=== PATIENT | male | born 1950 | race Caucasian/White ===

== ENCOUNTER 2019-02-25 09:50 | Outpatient (CLI) | payer MEDICARE, BC, SELFPAY ==
[2019-02-25 13:13] LABS: Anion Gap 9.3 mmol/L (3-11); BUN 17 mg/dL (7-18); CO2 26.7 mmol/L (21.0-32.0); CREATININE 1.01 mg/dL (0.70-1.30); Calcium 8.9 mg/dL (8.5-10.1); Chloride 105 mmol/L (98-107); Glucose 129 mg/dL (70-100); Potassium 4.6 mmol/L (3.5-5.1); Sodium 141 mmol/L (136-145)
== END 2019-02-25 10:10 ==
PROVIDERS: Visit Provider Family Medicine
DX: I10 Essential (primary) hypertension (principal)
CPT/HCPCS: 36415; 80048

== ENCOUNTER 2019-03-04 09:35 | Outpatient (CLI) | payer MEDICARE, BC, SELFPAY | END 2019-03-04 09:55 | PROVIDERS: PCP Family Medicine; Visit Provider Family Medicine | DX: E11.9 Type 2 diabetes mellitus without complications (principal) | CPT/HCPCS: 36415; 83036 ==

== ENCOUNTER 2020-02-28 09:36 | Outpatient (CLI) | payer MEDICARE, BC, SELFPAY ==
[2020-02-28 12:57] LABS: Anion Gap 10.2 mmol/L (3-11); BUN 25 mg/dL (7-18); CO2 28.8 mmol/L (21.0-32.0); CREATININE 1.08 mg/dL (0.70-1.30); Calcium 9.6 mg/dL (8.5-10.1); Chloride 100 mmol/L (98-107); Glucose 125 mg/dL (74-106); Potassium 5.1 mmol/L (3.5-5.1); Sodium 139 mmol/L (136-145)
== END 2020-02-28 09:56 ==
PROVIDERS: PCP Family Medicine; Visit Provider Family Medicine
DX: I10 Essential (primary) hypertension (principal)
CPT/HCPCS: 36415; 80048

== ENCOUNTER 2021-03-06 09:14 | Outpatient (REF) | payer MEDICARE, BC, SELFPAY ==
[2021-03-06 16:12] LABS: ALT 24 U/L (16-63); AST 16 U/L (15-37); Albumin 4.1 g/dL (3.4-5.0); Alkaline Phosphatase 54 U/L (46-116); BUN 21 mg/dL (7-18); Bilirubin, Total 0.6 mg/dL (0.2-1.0); Calcium 9.5 mg/dL (8.5-10.1); Calculated LDL 182 mg/dL (<100); Chloride 103 mmol/L (98-107); Cholesterol 248 mg/dL (<200); Glucose 142 mg/dL (74-106); HDL Cholesterol 50 mg/dL (40-60); Potassium 4.9 mmol/L (3.5-5.1); Sodium 140 mmol/L (136-145); Total Protein 7.1 g/dL (6.4-8.2); Triglyceride 82 mg/dL (<150)
== END 2021-03-06 09:15 | disposition home or self-care (01) ==
LOC: LBN 09:14
PROVIDERS: PCP Nurse Practitioner Family; Visit Provider Nurse Practitioner Family
DX: I10 Essential (primary) hypertension (principal); E11.9 Type 2 diabetes mellitus without complications
CPT/HCPCS: 80053; 80061; 83036

== ENCOUNTER → 2023-08-19 18:50 | Outpatient (CLI) | payer MEDICARE, BC, SELFPAY ==
--- NOTE | 2023-08-19 10:18 | DI.RAD_ITS ---
Exam(s) XR LUMBAR SPINE COMPLETE EXAM: XR LUMBAR SPINE COMPLETE CLINICAL HISTORY: bilateral leg pain,m79.605,m79.604. TECHNIQUE: 2D digital imaging was performed. Five views. COMPARISON: No exams were available for comparison FINDINGS: BONES: No fracture or destructive lesion. Vertebral body heights are maintained. Endplate osteophyte s throughout. Facet degenerative changes noted throughout. DISKS: Moderate loss of disc height at L2-3. Moderate to severe loss of disc height at L4-5 and L5-S 1. ALIGNMENT: Lumbar spinal alignment is within normal limits. SOFT TISSUE: Aorta is calcified and normal in diameter. IMPRESSION: Degenerate disc changes and facet degenerative changes greatest at L4-5 and L5-S1. DATA REPOSITORY: RADIATION DOSE DELIVERED:
== END ==
PROVIDERS: PCP Nurse Practitioner Family; Visit Provider Nurse Practitioner Family
DX: M51.36 Other intervertebral disc degeneration, lumbar region
CPT/HCPCS: 36415; 80053; 85652; 87798; 72110; 85025; 86140; 86618

== ENCOUNTER 2023-08-19 19:03 | Outpatient (CLI) | payer MEDICARE, BC, SELFPAY ==
[2023-08-19 09:47] LABS: Abs Immature Grans 0.05 10^3/uL (0.0-0.06); Absolute Basophil Count 0.07 10^3/uL (0.0-0.2); Absolute Eosinophil Count 0.19 10^3/uL (0.0-0.7); Absolute Lymphocyte Count 1.81 10^3/uL (1.2-3.4); Absolute Monocyte Count 1.01 10^3/uL (0.1-0.8); Absolute Neutrophil Count 7.44 10^3/uL (1.2-6.7); Basophils % 0.7; Eosinophils % 1.8; HCT 42.6 % (40.0-50.0); HGB 14.2 g/dL (13.5-17.5); Immature Grans % 0.5; Lymphocytes % 17.1; MCH 30.8 pg (27.0-33.0); MCHC 33.3 % (32.0-36.0); MCV 92 fL (80-95); MPV 9.4 fL (8.0-11.0); Monocytes % 9.6; Neutrophils % 70.3; Platelet Count 391 10^3/uL (130-400); RBC 4.61 10^6/uL (4.36-5.78); RDW 11.1 % (11.8-14.1); RDW-SD 37.8 fL; WBC 10.57 10^3/uL (4.4-10.8)
[2023-08-19 09:58] LABS: ESR 23 mm/hr (0-20)
[2023-08-19 10:21] LABS: ALT 18 U/L (16-63); AST 11 U/L (15-37); Albumin 3.2 g/dL (3.4-5.0); Alkaline Phosphatase 77 U/L (46-116); Anion Gap 6.8 mmol/L (3-11); BUN 16 mg/dL (7-18); Bilirubin, Total 0.7 mg/dL (0.2-1.0); C-Reactive Protein 7.45 mg/dL (0.0-0.3); CO2 30.2 mmol/L (21.0-32.0); CREATININE 1.1 mg/dL (0.70-1.30); Calcium 9.6 mg/dL (8.5-10.1); Chloride 99 mmol/L (98-107); Estimated GFR 71.32 (mL/min/1.73m2); Glucose 188 mg/dL (74-106); Potassium 4.2 mmol/L (3.5-5.1); Sodium 136 mmol/L (136-145); Total Protein 8.1 g/dL (6.4-8.2)
[2023-08-20 09:37] LABS: Lyme Ab w Rflx to Lyme Confirm Negative (Negative)
[2023-08-22 00:24] LABS: Anaplasma phagocytophilum Negative (Negative); B. miyamotoi PCR Negative (Negative); Babesia divergens/MO-1 Negative (Negative); Babesia duncani Negative (Negative); Babesia microti Negative (Negative); Ehrlichia chaffeensis Negative (Negative); Ehrlichia ewingii/canis Negative (Negative); Ehrlichia muris eauclairensis Negative (Negative)
== END 2023-08-19 19:04 | disposition home or self-care (01) ==
LOC: LBO 19:04
PROVIDERS: PCP Nurse Practitioner Family; Visit Provider Nurse Practitioner Family
DX: M79.604 Pain in right leg (principal); M79.605 Pain in left leg
CPT/HCPCS: 36415; 80053; 85652; 87798; 72110; 85025; 86140; 86618

== ENCOUNTER → 2023-08-28 08:16 | Outpatient (CLI) | payer MEDICARE, BC, SELFPAY ==
--- NOTE | 2023-08-28 07:15 | DI.RAD_ITS ---
Exam(s) XR KNEE LT 4V AP,LAT,GRIS,PAT EXAM: XR KNEE LT 4V AP,LAT,GRIS,PAT CLINICAL HISTORY: left knee pain,m25.562. TECHNIQUE: 2D digital imaging was performed of the left knee. Four images were obtained. Merchant, AP, lateral and PA tunnel views were obtained. COMPARISON: None. FINDINGS: BONES: No acute fracture is present. No bony destructive lesion is seen. There is an enthesophyte at the superior patella. JOINTS: The knee is normally aligned. There is mild narrowing of the medial joint compartment of the femoral tibial joint. Osteophytes is seen at the posterior patella. No loose body. SOFT TISSUE: Vascular calcifications are present. IMPRESSION: Mild degenerative changes of the left knee. DATA REPOSITORY: RADIATION DOSE DELIVERED:
--- NOTE | 2023-08-28 07:15 | DI.US_ITS ---
Exam(s) US SOFT TISS EXTREMITY/GROIN EXAM: US SOFT TISS EXTREMITY/GROIN CLINICAL HISTORY: left knee pain, popliteal tenderness, ? bakers cyst,M25.562. TECHNIQUE: Ultrasound was performed using standard protocol. COMPARISON: No exams were available for comparison FINDINGS: Sonographic assessment utilizing grayscale and color Doppler imaging was performed and targeted to th e area of clinical concern. There is a fluid collection measuring 10 x 1.3 x 7.5 cm anterior to the patella which may represent a prepatellar bursitis. There is no fluid noted in the popliteal fossa. The popliteal artery and vei n are unremarkable. IMPRESSION: 1. No evidence of a popliteal cyst. 2. Fluid anterior to the patella which may represent prepatellar bursitis. If there is concern for i nternal derangement, an MRI may be obtained for further evaluation. DATA REPOSITORY:
== END ==
PROVIDERS: PCP Nurse Practitioner Family; Visit Provider Nurse Practitioner Family
DX: M17.12 Unilateral primary osteoarthritis, left knee (principal); R22.42 Localized swelling, mass and lump, left lower limb
CPT/HCPCS: 76882; 73564

== ENCOUNTER → 2023-09-30 01:43 | Outpatient (CLI) | payer MEDICARE, BC, SELFPAY ==
--- NOTE | 2023-09-30 | DI.MRI_ITS ---
Exam(s) MR LOWER JOINT LT WO EXAM: MR LOWER JOINT LT WO CLINICAL HISTORY: LT KNEE PAIN,INTERNAL DERANGEMENT,M23.92. TECHNIQUE: Multiplanar multisequence MRI was performed. COMPARISON: CR XR KNEE LT 4V AP,LAT,GRIS,PAT from 08/28/2023 FINDINGS: BONES: There is no fracture or contusion pattern. Enthesophyte at superior patella. JOINTS: A moderate-sized joint effusion is present. Articular cartilage: Patellofemoral joint: Articular cartilage is unremarkable. Medial femoral tibial joint: Articular cartilage is unremarkable. Lateral femoral tibial joint: Articular cartilage is unremarkable. TENDONS: Extensor mechanism: Quadriceps tendon unremarkable. Small area of intermediate signal in the distal patellar tendon disc before the tubercle. The findings could represent tendinosis or mild partial te ar. Medial retinaculum: Unremarkable. Lateral retinaculum: Unremarkable. Popliteus: Some thickening and intermediate signal proximally, partial tear versus tendinosis. MUSCLES: Unremarkable. MENISCI: The medial meniscus shows an in inferiorly surfacing horizontal tear of the posterior horn. The lateral meniscus shows mild degenerative signal changes. SOFT TISSUES: Subcutaneous edema, greater laterally. LIGAMENTS: Anterior Cruciate: Somewhat thickened which edema within the fibers. No evidence of focal tear. Fin dings could indicate sprain versus mucoid degeneration. Posterior Cruciate: Unremarkable. Medial Collateral:Unremarkable. Lateral Collateral: Unremarkable. IMPRESSION: Inferior surfacing tear of the posterior horn of the medial meniscus. Joint effusion. Question of ACL sprain versus mucoid degeneration. Arm tendinosis versus partial tear of the proximal popliteus tendon. Mild edema in the distal patell ar tendon. DATA REPOSITORY:
== END ==
PROVIDERS: PCP Nurse Practitioner Family; Visit Provider Physician Assistant
DX: M23.222 Derangement of posterior horn of medial meniscus due to old tear or injury, left knee (principal)
CPT/HCPCS: 73721

== ENCOUNTER 2024-04-08 00:39 | Outpatient (CLI) | payer MEDICARE, BC, SELFPAY ==
[2024-04-08 12:18] LABS: HCT 43.8 % (40.0-50.0); HGB 14.6 g/dL (13.5-17.5); MCH 31.3 pg (27.0-33.0); MCHC 33.3 % (32.0-36.0); MCV 94 fL (80-95); MPV 9.4 fL (8.0-11.0); Platelet Count 288 10^3/uL (130-400); RBC 4.67 10^6/uL (4.36-5.78); RDW 13.8 % (11.8-14.1); RDW-SD 47.4 fL; WBC 8.03 10^3/uL (4.4-10.8)
[2024-04-08 12:48] LABS: ALT 19 U/L (16-63); AST 15 U/L (15-37); Albumin 3.8 g/dL (3.4-5.0); Alkaline Phosphatase 64 U/L (46-116); Anion Gap 4.1 mmol/L (3-11); BUN 14 mg/dL (7-18); CO2 30.9 mmol/L (21.0-32.0); CREATININE 0.9 mg/dL (0.70-1.30); Calcium 9.4 mg/dL (8.5-10.1); Calculated LDL 170 mg/dL (<100); Chloride 102 mmol/L (98-107); Cholesterol 258 mg/dL (<200); Estimated GFR 90.18 (mL/min/1.73m2); Glucose 139 mg/dL (74-106); HDL Cholesterol 67 mg/dL (40-60); Potassium 4.5 mmol/L (3.5-5.1); Sodium 137 mmol/L (136-145); TSH (W/Ref FT4) 1.82 uIU/mL (0.36-3.74); Total Protein 7.5 g/dL (6.4-8.2); Triglyceride 105 mg/dL (<150)
== END 2024-04-08 00:40 | disposition home or self-care (01) ==
LOC: LBO 00:39
PROVIDERS: PCP Nurse Practitioner Family; Referring Provider Nurse Practitioner Family; Visit Provider Nurse Practitioner Family
DX: E11.9 Type 2 diabetes mellitus without complications (principal); I10 Essential (primary) hypertension; Z00.00 Encounter for general adult medical examination without abnormal findings; R53.83 Other fatigue; E78.2 Mixed hyperlipidemia
CPT/HCPCS: 36415; 80053; 80061; 85027; 82043; 82570; 84443

== ENCOUNTER 2025-03-20 03:26 | Outpatient (CLI) | payer MEDICARE, BC, SELFPAY ==
[2025-03-20 09:03] LABS: Anion Gap 6.0 mmol/L (3-11); BUN 19 mg/dL (7-18); CO2 29.0 mmol/L (21.0-32.0); Calcium 9.1 mg/dL (8.5-10.1); Chloride 102 mmol/L (98-107); Estimated GFR 70.44 (mL/min/1.73m2); Glucose 137 mg/dL (74-106); Potassium 4.6 mmol/L (3.5-5.1); Sodium 137 mmol/L (136-145)
[2025-03-20 09:48] LABS: COMMENT (LAB VIEW ONLY) 32.16 mg/dL; Microalb ug/mg Crea 27.7 ug/mg Cr
[2025-03-23 16:22] LABS: Apolipoprotein B, Serum 133 mg/dL; Beta VLDL Cholesterol Not Detected mg/dL (<15); Beta VLDL Triglycerides Not Detected mg/dL (<15); Cholesterol, Total, CDC 234 mg/dL; Chylomicron Cholesterol Not Detected; Chylomicron Triglycerides Not Detected; HDL Cholesterol, CDC 52 mg/dL (>=40); LpX Not detected; Triglycerides, CDC 74 mg/dL; VLDL Triglycerides 25 mg/dL (<120)
[2025-03-28 10:15] LABS: Anti GAD65 Abs 0.00 nmol/L (<= 0.02)
== END 2025-03-20 03:27 | disposition home or self-care (01) ==
LOC: LBO 03:26
PROVIDERS: PCP Nurse Practitioner Family; Visit Provider Nurse Practitioner Family
DX: E11.9 Type 2 diabetes mellitus without complications (principal); E78.2 Mixed hyperlipidemia
CPT/HCPCS: 36415; 80048; 80061; 86337; 86341; 82043; 82172; 82570; 82664; 84681

== ENCOUNTER 2025-04-05 09:24 | Outpatient (CLI) | payer MEDICARE, BC, SELFPAY ==
--- NOTE | 2025-04-05 09:15 | RT.EKG_ITS ---
APPROVED REPORT Exam: Resting ECG Reason for Exam: chest discomfort Patient Location: O HR:74 bpm ECG Measurements Heart Rate 74 AXIS WY 180 P 57 QRSd 111 QRS 19 QT 409 T -59 QTc 454 Conclusion Sinus rhythm...normal P axis, V-rate 50- 99 Probable left ventricular hypertrophy...multiple LVH criteria Inferior infarct, age indeterminate...Q>35mS, T neg, II III aVF
== END 2025-04-05 09:25 | disposition home or self-care (01) ==
LOC: DI.CM 09:24
PROVIDERS: PCP Nurse Practitioner Family; Visit Provider Nurse Practitioner Family
DX: R07.89 Other chest pain (principal)
CPT/HCPCS: 93010

== ENCOUNTER 2025-04-05 09:57 | Inpatient (IN) | payer MEDICARE, BC, SELFPAY ==
[2025-04-05] VITALS (48 sets, daily range): BP systolic 113–161; BP diastolic 60–99; PULSE 57–84; RESP 8–24; TEMP 36.4–37.5; O2SAT 92–98
--- NOTE | 2025-04-05 09:45 | RT.EKG_ITS ---
APPROVED REPORT Exam: Resting ECG Reason for Exam: chest pain Patient Location: E HR:71 bpm ECG Measurements Heart Rate 71 AXIS SD 175 P 50 QRSd 118 QRS 23 QT 395 T -47 QTc 430 Conclusion Sinus rhythm...normal P axis, V-rate 60- 99 Probable left atrial enlargement...P >50mS, <-0.10mV V1 Left ventricular hypertrophy...multiple LVH criteria Inferior infarct, age indeterminate...Q>35mS, T neg, II III aVF No STEMI
[2025-04-05 10:42] LABS: Abs Immature Grans 0.02 10^3/uL (0.0-0.06); HCT 41.1 % (40.0-50.0); HGB 13.3 g/dL (13.5-17.5); Immature Grans % 0.3 %; MCH 28.8 pg (27.0-33.0); MCHC 32.4 % (32.0-36.0); MCV 89 fL (80-95); MPV 10.3 fL (8.0-11.0); Platelet Count 265 10^3/uL (130-400); RBC 4.62 10^6/uL (4.36-5.78); RDW 14.4 % (11.8-14.1); RDW-SD 47.1 fL; WBC 6.82 10^3/uL (4.4-10.8)
[2025-04-05] MEDS: Aspirin 81 MG CHEW 324 MG CH (10:47)
[2025-04-05] MEDS: Famotidine 20 MG TAB PO (10:47)
--- NOTE | 2025-04-05 11:00 | RT.EKG_ITS ---
APPROVED REPORT Exam: Resting ECG Reason for Exam: R sided Patient Location: E HR:64 bpm ECG Measurements Heart Rate 64 AXIS MO 186 P 46 QRSd 114 QRS 15 QT 431 T -44 QTc 442 Conclusion Sinus rhythm...normal P axis, V-rate 60- 99 Atrial premature complex...SV complex w/ short R-R interval Probable left atrial enlargement...P >50mS, <-0.10mV V1 Left ventricular hypertrophy...multiple LVH criteria Inferior infarct, age indeterminate...Q>35mS, T neg, II III aVF ST elevation, consider anterior injury...ST >0.15mV, V1-V5 No STEMI Hyper acute T-waves
[2025-04-05 11:06] LABS: ALT 19 U/L (16-63); AST 22 U/L (15-37); Albumin 3.7 g/dL (3.4-5.0); Alkaline Phosphatase 64 U/L (46-116); Anion Gap 6.9 mmol/L (3-11); BUN 20 mg/dL (7-18); Bilirubin, Total 0.5 mg/dL (0.2-1.0); CO2 28.1 mmol/L (21.0-32.0); Calcium 9.0 mg/dL (8.5-10.1); Chloride 104 mmol/L (98-107); Estimated GFR 78.98 (mL/min/1.73m2); Glucose 129 mg/dL (74-106); Lipase 32 U/L (<78); NT-proBNP 1383 pg/mL (<300); Potassium 4.5 mmol/L (3.5-5.1); Sodium 139 mmol/L (136-145); Total Protein 7.1 g/dL (6.4-8.2)
[2025-04-05 11:09] LABS: Troponin I 843 ng/L (<or=76)
[2025-04-05 11:10] LABS: D-Dimer 466 ng/mlFEU (<500)
--- NOTE | 2025-04-05 11:15 | RT.EKG_ITS ---
APPROVED REPORT Exam: Resting ECG Reason for Exam: R sided Patient Location: E HR:60 bpm ECG Measurements Heart Rate 60 AXIS NM 178 P 44 QRSd 119 QRS 11 QT 451 T -33 QTc 452 Conclusion Sinus rhythm...normal P axis, V-rate 60- 99 Probable left atrial enlargement...P >50mS, <-0.10mV V1 Nonspecific intraventricular conduction delay...QRSd >115mS, not LBBB/RBBB Probable inferolateral infarct, age indeterm...Q >35mS, inf-lat leads Anterolateral infarct, age indeterminate...Q >35mS, flat/neg T, V3-V6,I,aVL No STEMI
--- NOTE | 2025-04-05 11:55 | DI.RAD_ITS ---
Exam(s) XR PORTABLE CHEST AP EXAM: XR PORTABLE CHEST AP CLINICAL HISTORY: xr chest TECHNIQUE: 2D digital imaging was performed. COMPARISON: CR CHEST 2 VIEWS PA,LAT from 12/08/2016 FINDINGS: LUNGS: Clear. No pleural abnormality seen. HEART: Normal size. AORTA: Normal diameter. BONES: Unremarkable for age. Soft tissues: Unremarkable. IMPRESSION: No acute findings. DATA REPOSITORY: RADIATION DOSE DELIVERED:
[2025-04-05 12:03] LABS: Troponin I 897 ng/L (<or=76)
[2025-04-05] MEDS: Heparin in 0.45% NaCl 25,000 UNIT/250 ML BAG 9.5 UNIT IVINF (12:21)
--- NOTE | 2025-04-05 12:24 | ED.GENADUL_ITS ---
Discharge Plan Disposition Patient Disposition: Admit to [facility] Condition: Stable Discharge Details Clinical Impression: Non-ST elevated myocardial infarction Admit Date/Time: 04/05/25 13:15 Admit Provider: Souleymane Garcia Attending Provider: Souleymane Garcia Primary Care Provider: Cristian Loera ED Provider: Hero Jc HPI General Date/Time Provider Initiated Documentation: 04/05/25 10:12 . 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 Quality described as chest tightness, dizziness, diaphoresis and shortness of breath, no radiation to syncope, endorses nausea when he stands to toilet here. Severity is described as moderate at onset, currently 0-1/10. Palliating factors include nothing specific attempted. Provoking factors include any physical activity. Events leading up to the incident/Associated Symptoms: Patient does not go to the doctor often. Patient not anticoagulated. Related Data Home Medications ?Medication ?Instructions ?Recorded ?Confirmed ibuprofen 200 mg tablet (Motrin IB) 400 mg PO BID PRN 01/17/13 04/05/25 Held on 04/05/25. Instructions: Pt Stopped/Never Started multivitamin (Once Daily tablet) 1 tab PO DAILY #90 ta bs 02/18/18 04/05/25 insulin glargine 100 unit/mL (3 10 unit (0.1 mL) subcu t BID #15 mL 03/08/25 04/05/25 mL) subcutaneous pen (Basaglar KwikPen U-100 Insulin) blood sugar diagnostic (OneTouch #200 ea 03/09/25 08 Verio test strips) blood-glucose meter (OneTouch #1 ea 03/09/25 04/05/25 Verio Flex Start kit) lancets 30 gauge (OneTouch Delica #200 ea 03/09/25 Plus Lancet) pen needle, diabetic 31 gauge x #100 ea 03/09/2504/05 (Comfort EZ Pen [place]) Previous Rx's ?Medication ?Instructions ?Recorded multivitamin (Once Daily tablet) 1 tab PO DAILY #90 ta bs 02/18/18 insulin glargine 100 unit/mL (3 10 unit (0.1 mL) subcu t BID #15 mL 03/08/25 mL) subcutaneous pen (Basaglar KwikPen U-100 Insulin) blood sugar diagnostic (OneTouch #200 ea 03/09/25 Verio test strips) blood-glucose meter (OneTouch #1 ea 03/09/25 Verio Flex Start kit) lancets 30 gauge (OneTouch Delica #200 ea 03/09/25 Plus Lancet) pen needle, diabetic 31 gauge x #100 ea 03/09/25 3/16 (Comfort EZ Pen [place]) Allergies Allergy/AdvReac Type Severity Reaction Status Date / Time Sulfa (Sulfonamide Allergy Unknown unknown Verified 04/05/25 09:15 Antibiotics) aspirin AdvReac Intermediate ABD UPSET Verified 04/05/25 09:15 Maabwic-BNY-NjS Reductase AdvReac Unknown unknown Verified 04/05/25 09:15 Inhibitor (Uunrrel-Wlp-Jie Reductase Inhibitor) General Stated Complaint: SOB DIXON: 3 Review of Systems All systems reviewed & are unremarkable except as noted in HPI and below Exam Narrative Exam Narrative: GENERAL APPEARANCE: Well-nourished, non-toxic, awake and alert, atraumatic, no acute distress. SKIN: Warm, pink, dry, intact, without rashes/lesions/ulcerations. HEAD: Normocephalic, atraumatic, normal hair distribution for gender/age. EYES: Normal conjunctiva, no exudates on lids/lashes. ENT: Nares patent, no circumoral cyanosis, no facial swelling NECK: Supple, trachea midline, painless cervical ROM. LUNGS/CHEST: Lungs CTA bilaterally- no rhonchi/rales/wheezes diffusely, non- labored respirations, normal A/P diameter, symmetrical expansion, no chest wall deformity HEART (CV/PV): Regular rate and rhythm with systolic 2/6 murmur at LSB, no peripheral edema, no JVD. ABDOMEN: Soft, non-distended, no guarding, no tenderness. MSK: Normal ROM, no swelling/deformity to bilateral UEs or LEs, moving all extremities without weakness, no cyanosis, spine midline without tenderness, normal curvature. NEURO: Mental Status AAOx4 - alert to person, place, time, events No facial droop, no forehead involvement. Motor: No focal weakness - strength 5/5 in bilateral UEs and LEs, proximal and distal, symmetric. Sensory: sensation intact to light touch globally. Gait normal: patient ambulated without ataxia into ED room. PSYCH: euthymic, cooperative, pleasant, appropriate speech Course Vital Signs Vital signs: Vital Signs Temperature 36.7 C 04/05/25 09:59 Pulse 75 04/05/25 09:59 Respiratory Rate 18 04/05/25 09:59 Blood Pressure 133/75 04/05/25 09:59 Pulse Oximetry 97 04/05/25 09:59 Temperature 37.5 C 04/05/25 10:22 Temperature Source Oral 04/05/25 10:22 Pulse 71 04/05/25 10:31 Pulse 71 04/05/25 10:31 Respiratory Rate 14 04/05/25 10:31 Respiratory Effort Normal, Non-Labored 04/05/25 10:19 Respiratory Depth Normal 04/05/25 10:19 Respiratory Pattern Normal 04/05/25 10:19 Blood Pressure 128/76 04/05/25 10:30 Blood Pressure Mean 92 04/05/25 10:30 Blood Pressure Position Sitting 04/05/25 10:22 Pulse Oximetry 97 04/05/25 10:31 Oxygen Delivery Method Room Air 04/05/25 10:22 Oxygen Flow Rate 0 04/05/25 09:59 Pain Level 0 04/05/25 09:59 Lab/Test Results Lab/Test Results: Laboratory Tests Range/Units 04/05/25 04/05/25 10:35 11:30 WBC (4.4-10.8) 10^3/uL 6.82 RBC (4.36-5.78) 10^6/uL 4.62 Hgb (13.5-17.5) g/dL 13.3 L Hct (40.0-50.0) % 41.1 MCV (80-95) fL 89 MCH (27.0-33.0) pg 28.8 MCHC (32.0-36.0) % 32.4 RDW (11.8-14.1) % 14.4 H Plt Count (130-400) 10^3/uL 265 MPV (8.0-11.0) fL 10.3 Immature Gran % % 0.3 Neutrophils % % 68.9 Lymphocytes % % 18.3 Monocytes % % 8.7 Eosinophils % % 2.8 Basophils % % 1.0 Nucleated RBC % (0.0-0.3) % 0.0 Absolute Neutrophils (1.2-6.7) 10^3/uL 4.70 Absolute Lymphocytes (1.2-3.4) 10^3/uL 1.25 Absolute Monocytes (0.1-0.8) 10^3/uL 0.59 Absolute Eosinophils (0.0-0.7) 10^3/uL 0.19 Absolute Basophils (0.0-0.2) 10^3/uL 0.07 D-Dimer (<500) ng/mlFEU 466 Sodium (136-145) mmol/L 139 Potassium (3.5-5.1) mmol/L 4.5 Chloride (98-107) mmol/L 104 Carbon Dioxide (21.0-32.0) mmol/L 28.1 Anion Gap (3-11) mmol/L 6.9 BUN (7-18) mg/dL 20 H Creatinine (0.70-1.30) mg/dL 1.0 Est GFR (CKD-EPI 2020) (mL/min/1.73m2) 78.98 Glucose (74-106) mg/dL 129 H Calcium (8.5-10.1) mg/dL 9.0 Total Bilirubin (0.2-1.0) mg/dL 0.5 AST (15-37) U/L 22 ALT (16-63) U/L 19 Alkaline Phosphatase (46-116) U/L 64 Troponin I (<or=76) ng/L 843 H* 897 H* NT-Pro-B Natriuret Pep (<300) pg/mL 1383 H Total Protein (6.4-8.2) g/dL 7.1 Albumin (3.4-5.0) g/dL 3.7 Lipase (<78) U/L 32 Medical Decision Making This dictation utilizes [id number] dictation software and may contain unedited grammatical errors. 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 Quality described as chest tightness, dizziness, diaphoresis and shortness of breath, no radiation to syncope, endorses nausea when he stands to toilet here. Severity is described as moderate at onset, currently 0-1/10. Palliating factors include nothing specific attempted. Provoking factors include any physical activity. Events leading up to the incident/Associated Symptoms: Patient does not go to the doctor often. Patients' medical history: T2DM, hyperlipidemia not on statins, hypertension. Family and social history: Denies tobacco use, no alcohol use, performs manual labor via chores, eats normal diet. Pertinent exam findings / vital signs include systolic murmur best heard at LSB, with stable vitals, benign abdomen, no carotid bruits, neuro intact. Differential / pathologies of concern include ACS, CHF, costochondritis, PE, pneumonia. Diagnostic studies of: - CBC, CMP, D-dimer, serial troponins, BNP, lipase, EKGs, XR chest. 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 Barsher is accepting physician- patient is on heparin, got 324mg ASA, per cardiology hold plavix for now. Admit to [facility] with transfer tomorrow. Hospitalist Dr. Garcia accepts at 1245. -324mg ASA, Heparin drip, hold plavix- no active CP. 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 He presents to his primary care who refers to the ER, we have found his troponin to be at 847, repeat 893 likely NSTEMI but he does have T wave inversions and peaked T waves with some diffuse ST depressions and questionable ST elevation in aVL, I spoke with [facility] [place] cardiology they will accept the patient for tomorrow pending any negative changes for reevaluation and possible more expedient transfer, patient is suspicious for multivessel disease. He is having no chest pain here in the emergency department and received aspirin and was placed on heparin, admitted to hospitalist service pending transfer to [facility] [place] accepted by Dr. Brasher. Disposition of Non-ST Elevation Myocardial Infarction. Patient verbalized understanding of the plan and return to ED criteria and engaged in shared decision making. Medical Records Medical records reviewed: Yes I reviewed the patient's medical records. Imaging Data Radiologic Study: Attestation: I personally reviewed and interpreted this imaging study as follows: Imaging: X-Ray Radiologist's impression: EXAM: XR PORTABLE CHEST AP CLINICAL HISTORY: xr chest TECHNIQUE: 2D digital imaging was performed. COMPARISON: CR CHEST 2 VIEWS PA,LAT from 12/08/2016 FINDINGS: LUNGS: Clear. No pleural abnormality seen. HEART: Normal size. AORTA: Normal diameter. BONES: Unremarkable for age. Soft tissues: Unremarkable. IMPRESSION: No acute findings. Lab Data Lab results reviewed: Yes I reviewed the patient's lab results. Labs: Laboratory Tests Range/Units 04/05/25 04/05/25 10:35 11:30 WBC (4.4-10.8) 10^3/uL 6.82 RBC (4.36-5.78) 10^6/uL 4.62 Hgb (13.5-17.5) g/dL 13.3 L Hct (40.0-50.0) % 41.1 MCV (80-95) fL 89 MCH (27.0-33.0) pg 28.8 MCHC (32.0-36.0) % 32.4 RDW (11.8-14.1) % 14.4 H Plt Count (130-400) 10^3/uL 265 MPV (8.0-11.0) fL 10.3 Immature Gran % % 0.3 Neutrophils % % 68.9 Lymphocytes % % 18.3 Monocytes % % 8.7 Eosinophils % % 2.8 Basophils % % 1.0 Nucleated RBC % (0.0-0.3) % 0.0 Absolute Neutrophils (1.2-6.7) 10^3/uL 4.70 Absolute Lymphocytes (1.2-3.4) 10^3/uL 1.25 Absolute Monocytes (0.1-0.8) 10^3/uL 0.59 Absolute Eosinophils (0.0-0.7) 10^3/uL 0.19 Absolute Basophils (0.0-0.2) 10^3/uL 0.07 D-Dimer (<500) ng/mlFEU 466 Sodium (136-145) mmol/L 139 Potassium (3.5-5.1) mmol/L 4.5 Chloride (98-107) mmol/L 104 Carbon Dioxide (21.0-32.0) mmol/L 28.1 Anion Gap (3-11) mmol/L 6.9 BUN (7-18) mg/dL 20 H Creatinine (0.70-1.30) mg/dL 1.0 Est GFR (CKD-EPI 2020) (mL/min/1.73m2) 78.98 Glucose (74-106) mg/dL 129 H Calcium (8.5-10.1) mg/dL 9.0 Total Bilirubin (0.2-1.0) mg/dL 0.5 AST (15-37) U/L 22 ALT (16-63) U/L 19 Alkaline Phosphatase (46-116) U/L 64 Troponin I (<or=76) ng/L 843 H* 897 H* NT-Pro-B Natriuret Pep (<300) pg/mL 1383 H Total Protein (6.4-8.2) g/dL 7.1 Albumin (3.4-5.0) g/dL 3.7 Lipase (<78) U/L 32 Quality:SDOH Health Related Social Needs: Health related social needs lonely/isolated Health related social needs details pt states he only has it brother PFSH All Active Problems (Updated 04/05/25 @ 15:12 by VINCENT Sanders) Non-ST elevated myocardial infarction (Acute) NSTEMI (non-ST elevated myocardial infarction) (Acute) Diabetes mellitus type 2 in nonobese (Acute) Skin lesion (Acute) Left knee pain (Acute) Bilateral leg pain (Acute) Actinic keratoses (Acute) Essential hypertension (Acute) Family hx of prostate cancer (Acute) Hyperlipidemia (Acute) Type 2 diabetes mellitus without complication, without long-term current use of insulin (Acute 02/13/17) Undiagnosed cardiac murmurs (Acute) echo-mild focal aortic valve thickening Medical History Actinic keratosis History of alcoholism 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 Father Prostate cancer Brother Essential hypertension Hyperlipidemia Maternal Grandfather Heart disease Paternal Grandfather Stomach cancer Maternal Grandmother No problems noted. Paternal Grandmother No problems noted. Social History Smoking/Tobacco Use Status: Never Second Hand Exposure: Yes Smoking risk assessment performed?: Yes Alcohol Intake: former Drug use: Never Substance use type: does not use Caregiver/Support person: No Household members: none Housing: house Communication Needs: None Do you need help understanding health information?: Never Pets and animals: No Sexually active: No Do you think of yourself as: straight/heterosexual Current gender identity: male What is your relationship status?: How often do you talk on the phone with friends or family?: three or more times per week How often do you get together with friends or relatives?: twice per week How often do you attend scientology or mosque services?: decline to answer Do you belong to any clubs or organized social groups?: no Panel score (0-1 are the most socially isolated patients): 1 What type of physical activity do you participate in: walking Duration: 45-60 minutes/day Frequency: 3-4 times per week Special jabari needs: No Seatbelt use: always Drive intox or ride w/intox flatbed company driver: No Do you feel safe at home: Yes Do you feel safe in your relationship?: Yes
[2025-04-05 12:41] LABS: PTT Activated 25.3 sec (20.6-30.2)
--- NOTE | 2025-04-05 13:02 | W.PM.HP.N ---
Date of service: 04/05/25 Time of Service: 13:02 Assessment and Plan Assessment and plan (1) NSTEMI (non-ST elevated myocardial infarction): Status: Acute Assessment and plan: EKG negative for STEMI, repeat if ACS symptoms , D- dimer and C XR negative- no increase in chest pain intensity with cough, troponin [id number] pointing to NSTEMI Heparin drip ASA daily 6- hour troponin ordered Trend troponin PRN nitroglycerin chest pain [facility] in AM NPO at mignight (2) Diabetes mellitus type 2 in nonobese: Status: Acute Assessment and plan: Gluc AC & HS with home dose of insulin bolus and SSI coverage labs in AM (3) Essential hypertension: Status: Acute Assessment and plan: Not on medicine at home (4) Hyperlipidemia: Status: Acute Assessment and plan: Lipitor allergy - LE weakness Will attemp crestor Lipid panel Discussed with Dr. Garcia History of Present Illness History of Present Illness Chief Complaint: Chest pain Narrative: This 74 year-old male with a past medical history of hypelipeidemia,DM II, HNT, remote ETOH dependence presented to ED today by POV/ambulating after visiting urgent care for evaluation of daily left sided chest pain on exertional activity with shortness of breath and dizziness for the past 2 months resolving at rest within 2-3 minutes. Denied diaphoresis and shortness of breath, radiation, syncope, nausea vomiting. Reported feeling pre-syncopal but subsided with rest, family history of most likely sudden from father and grand father. EKG negative for STEMI, troponin positive at 843 and 897, BUN/Cr ratio 20, [id number] blood work is otherwise without actianble items. ASA 324 mg given in ED and heparin drip initiated. [facility] cardiology consult resulting with Dr. Brasher accepting the patient and admission to [facility] pending bed avalaiblity in the morning. No recommendation for plavix emitted. Full code status confirmed Review of Systems All systems reviewed & are unremarkable except as noted in HPI and below PFSH All Active Problems (Updated 04/05/25 @ 15:12 by VINCENT Sanders) Non-ST elevated myocardial infarction (Acute) NSTEMI (non-ST elevated myocardial infarction) (Acute) Diabetes mellitus type 2 in nonobese (Acute) Skin lesion (Acute) Left knee pain (Acute) Bilateral leg pain (Acute) Actinic keratoses (Acute) Essential hypertension (Acute) Family hx of prostate cancer (Acute) Hyperlipidemia (Acute) Type 2 diabetes mellitus without complication, without long-term current use of insulin (Acute 02/13/17) Undiagnosed cardiac murmurs (Acute) echo-mild focal aortic valve thickening Medical History Actinic keratosis History of alcoholism 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 Father Prostate cancer Brother Essential hypertension Hyperlipidemia Maternal Grandfather Heart disease Paternal Grandfather Stomach cancer Maternal Grandmother No problems noted. Paternal Grandmother No problems noted. Social History Smoking/Tobacco Use Status: Never Second Hand Exposure: Yes Smoking risk assessment performed?: Yes Alcohol Intake: former Drug use: Never Substance use type: does not use Caregiver/Support person: No Household members: none Housing: house Communication Needs: None Do you need help understanding health information?: Never Pets and animals: No Sexually active: No Do you think of yourself as: straight/heterosexual Current gender identity: male What is your relationship status?: How often do you talk on the phone with friends or family?: three or more times per week How often do you get together with friends or relatives?: twice per week How often do you attend oriental orthodox or mu-ism services?: decline to answer Do you belong to any clubs or organized social groups?: no Panel score (0-1 are the most socially isolated patients): 1 What type of physical activity do you participate in: walking Duration: 45-60 minutes/day Frequency: 3-4 times per week Special jabari needs: No Seatbelt use: always Drive intox or ride w/intox tow motor driver: No Do you feel safe at home: Yes Do you feel safe in your relationship?: Yes Meds Allergies and Home Medications Allergies Allergy/AdvReac Type Severity Reaction Status Date / Time Sulfa (Sulfonamide Allergy Unknown unknown Verified 04/05/25 09:15 Antibiotics) aspirin AdvReac Intermediate ABD UPSET Verified 04/05/25 09:15 Nuijzcg-TTC-AyT Reductase AdvReac Unknown unknown Verified 04/05/25 09:15 Inhibitor (Lsvpezu-Jhd-Rtg Reductase Inhibitor) Home Medications ?Medication ?Instructions ?Recorded ?Confirmed ?Type ibuprofen 200 mg tablet (Motrin IB) 400 mg PO BID PRN 01/17/13 04/05/25 History Held on 04/05/25. Instructions: Pt Stopped/Never Started multivitamin (Once Daily tablet) 1 tab PO DAILY #90 tabs 02/18/18 04/05/25 Rx insulin glargine 100 unit/mL (3 10 unit (0.1 mL) subcut BID #15 mL 03/08/25 04/05/25 Rx mL) subcutaneous pen ([employer] Solutionsaglar KwikPen U-100 Insulin) blood sugar diagnostic (Birdhouse for AutismTouch #200 ea 03/09/25 04/05/25 Rx Verio test strips) blood-glucose meter (OneTouch #1 ea 03/09/25 04/05/25 Rx Verio Flex Start kit) lancets 30 gauge (OneTouch Delica #200 ea 03/09/25 04/05/25 Rx Plus Lancet) pen needle, diabetic 31 gauge x #100 ea 03/09/25 04/05/25 Rx 3/16 (Comfort EZ Pen [place]) Exam Narrative Exam Narrative: 74 yo looking of stated age, alert and oriented X4, neurologically intact, clear lungs, S1, S2 regular, + cardiac murmur, abdomen is non-distended, soft and non-tender, no CVA tenderness, moves all 4 ext. Results Labs 04/05/25 10:35 04/05/25 10:35 Labs: Laboratory Results - last 24 hr 04/05/25 04/05/25 10:35 11:30 WBC 6.82 RBC 4.62 Hgb 13.3 L Hct 41.1 MCV 89 MCH 28.8 MCHC 32.4 RDW 14.4 H Plt Count 265 MPV 10.3 Immature Gran % 0.3 Neutrophils % 68.9 Lymphocytes % 18.3 Monocytes % 8.7 Eosinophils % 2.8 Basophils % 1.0 Nucleated RBC % 0.0 Absolute Neutrophils 4.70 Absolute Lymphocytes 1.25 Absolute Monocytes 0.59 Absolute Eosinophils 0.19 Absolute Basophils 0.07 APTT 25.3 D-Dimer 466 Sodium 139 Potassium 4.5 Chloride 104 Carbon Dioxide 28.1 Anion Gap 6.9 BUN 20 H Creatinine 1.0 Est GFR (CKD-EPI 2020) 78.98 Glucose 129 H Calcium 9.0 Total Bilirubin 0.5 AST 22 ALT 19 Alkaline Phosphatase 64 Troponin I 843 H* 897 H* NT-Pro-B Natriuret Pep 1383 H Total Protein 7.1 Albumin 3.7 Lipase 32 Last Vital Signs Temp 37.5 C 04/05/25 10:22 Pulse 65 04/05/25 12:31 Resp 22 04/05/25 12:31 BP 134/71 04/05/25 12:31 Pulse Ox 97 04/05/25 11:31 Time Spent Time spent with Patient: >75 minutes Time was spent: preparing to see the patient(eg.review tests), obtaining and/or reviewing separately otained hiistory, ordering medications,tests, procedures, referring, communicating with other health housekeeper child care, indepentently interpreting results, counseling the patient and care coordination
[2025-04-05] MEDS: Rosuvastatin 20 MG TAB PO (14:09)
[2025-04-05 14:18] LABS: Troponin I 1087 ng/L (<or=76)
--- NOTE | 2025-04-05 17:44 | W.PC.ACHO ---
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) (Last Reviewed 02/28/25 @ 11:09 by Josie Levine NP) PROCEDURES Most Recent Vital Signs Temperature 98.2 F 04/05/25 14:38 Temperature Source Oral 04/05/25 10:22 Pulse 74 04/05/25 14:44 Pulse Rhythm Regular 04/05/25 14:38 Pulse 76 04/05/25 14:01 Respiratory Rate 16 04/05/25 14:44 Respiratory Effort Normal, Non-Labored 04/05/25 14:38 Respiratory Depth Normal 04/05/25 14:38 Respiratory Pattern Normal 04/05/25 14:38 Blood Pressure 143/61 H 04/05/25 14:44 Blood Pressure Mean 89 04/05/25 14:01 Blood Pressure Position Sitting 04/05/25 10:22 Pulse Oximetry 98 04/05/25 14:44 Oxygen Delivery Method Room Air 04/05/25 14:38 Oxygen Flow Rate 0 04/05/25 14:38 Pain Level 0 04/05/25 14:44 Allergies Sulfa (Sulfonamide Antibiotics) Allergy (Unknown, Verified 04/05/25 09:15) unknown aspirin Adverse Reaction (Intermediate, Verified 04/05/25 09:15) ABD UPSET Ketqyso-XCQ-VhY Reductase Inhibitor (Uprurmu-Szr-Cqi Reductase Inhibitor) Adverse Reaction (Unknown, Verified 04/05/25 09:15) unknown Active Medications Generic Name Dose Route Start Last Admin Trade Name Freq PRN Reason Stop Dose Admin Heparin Sodium/Sodium Chloride 25,000 unit in 250 mls @ 0 mls/hr 04/05/25 11:45 04/05/25 12:21 IVINF 9.5 mls/hr INFUSION JACKY 9.5 mls/hr Protocol Administration Per Protocol Insulin Aspart 0 units 04/05/25 17:00 04/05/25 17:06 Insulin Aspart 300 Units/3 Ml Pen SC Not Given 0800,1200,1700 [facility] Protocol IV IV Catheter Type [Left Forearm Peripheral IV ] IV Catheter Type [Right Saline Lock Forearm] IV Catheter Gauge [Left 18 Forearm] IV Catheter Gauge [Right 18 Forearm] Diet Orders Category Date Time Status Diabetes Consistent CHO/Heart Healthy [DIET] Nutrition 04/05/25 Dinner Active Diagnostics 04/05/25 04/05/25 04/05/25 Range/Units 18:30 13:30 11:30 WBC (4.4-10.8) 10^3/uL RBC (4.36-5.78) 10^6/uL Hgb (13.5-17.5) g/dL Hct (40.0-50.0) % MCV (80-95) fL MCH (27.0-33.0) pg MCHC (32.0-36.0) % RDW (11.8-14.1) % Plt Count (130-400) 10^3/uL MPV (8.0-11.0) fL Immature Gran % % Neutrophils % % Lymphocytes % % Monocytes % % Eosinophils % % Basophils % % Nucleated RBC % (0.0-0.3) % Absolute Neutrophils (1.2-6.7) 10^3/uL Absolute Lymphocytes (1.2-3.4) 10^3/uL Absolute Monocytes (0.1-0.8) 10^3/uL Absolute Eosinophils (0.0-0.7) 10^3/uL Absolute Basophils (0.0-0.2) 10^3/uL APTT Pending (20.6-30.2) sec D-Dimer (<500) ng/mlFEU Sodium (136-145) mmol/L Potassium (3.5-5.1) mmol/L Chloride (98-107) mmol/L Carbon Dioxide (21.0-32.0) mmol/L Anion Gap (3-11) mmol/L BUN (7-18) mg/dL Creatinine (0.70-1.30) mg/dL Est GFR (CKD-EPI 2020) (mL/min/1.73m2) Glucose (74-106) mg/dL Calcium (8.5-10.1) mg/dL Total Bilirubin (0.2-1.0) mg/dL AST (15-37) U/L ALT (16-63) U/L Alkaline Phosphatase (46-116) U/L Troponin I Pending 1087 H* 897 H* (<or=76) ng/L NT-Pro-B Natriuret Pep (<300) pg/mL Total Protein (6.4-8.2) g/dL Albumin (3.4-5.0) g/dL Lipase (<78) U/L 04/05/25 Range/Units 10:35 WBC 6.82 (4.4-10.8) 10^3/uL RBC 4.62 (4.36-5.78) 10^6/uL Hgb 13.3 L (13.5-17.5) g/dL Hct 41.1 (40.0-50.0) % MCV 89 (80-95) fL MCH 28.8 (27.0-33.0) pg MCHC 32.4 (32.0-36.0) % RDW 14.4 H (11.8-14.1) % Plt Count 265 (130-400) 10^3/uL MPV 10.3 (8.0-11.0) fL Immature Gran % 0.3 % Neutrophils % 68.9 % Lymphocytes % 18.3 % Monocytes % 8.7 % Eosinophils % 2.8 % Basophils % 1.0 % Nucleated RBC % 0.0 (0.0-0.3) % Absolute Neutrophils 4.70 (1.2-6.7) 10^3/uL Absolute Lymphocytes 1.25 (1.2-3.4) 10^3/uL Absolute Monocytes 0.59 (0.1-0.8) 10^3/uL Absolute Eosinophils 0.19 (0.0-0.7) 10^3/uL Absolute Basophils 0.07 (0.0-0.2) 10^3/uL APTT 25.3 (20.6-30.2) sec D-Dimer 466 (<500) ng/mlFEU Sodium 139 (136-145) mmol/L Potassium 4.5 (3.5-5.1) mmol/L Chloride 104 (98-107) mmol/L Carbon Dioxide 28.1 (21.0-32.0) mmol/L Anion Gap 6.9 (3-11) mmol/L BUN 20 H (7-18) mg/dL Creatinine 1.0 (0.70-1.30) mg/dL Est GFR (CKD-EPI 2020) 78.98 (mL/min/1.73m2) Glucose 129 H (74-106) mg/dL Calcium 9.0 (8.5-10.1) mg/dL Total Bilirubin 0.5 (0.2-1.0) mg/dL AST 22 (15-37) U/L ALT 19 (16-63) U/L Alkaline Phosphatase 64 (46-116) U/L Troponin I 843 H* (<or=76) ng/L NT-Pro-B Natriuret Pep 1383 H (<300) pg/mL Total Protein 7.1 (6.4-8.2) g/dL Albumin 3.7 (3.4-5.0) g/dL Lipase 32 (<78) U/L Intake and Output - 24 Hour Total 04/05/25 09:57 thru 04/05/25 17:09 Intake Total 500 Balance 500 Weight 172 lb Intake: Oral 500 Other: Urine Appearance Clear Comment voiding ind Falls Risk Assessment History of Falls No History 04/05/25 14:38 Contributing Factors No Factors 04/05/25 14:38 Ambulatory Aids Independent 04/05/25 14:38 Tubes/Lines W/no contributing factors 04/05/25 14:38 Gait Evaluation No gait disturbance 04/05/25 14:38 Cognition No cognitive impairment 04/05/25 10:21 Fall Total Score 10 04/05/25 14:38 Level of Risk Standard/Low Risk 04/05/25 14:38 Problems (Last Reviewed 02/28/25 @ 11:09 by Josie Levine NP) NSTEMI (non-ST elevated myocardial infarction) (Acute) Diabetes mellitus type 2 in nonobese (Acute) Essential hypertension (Acute) Hyperlipidemia (Acute) v v v v v v v v v Sending and/or Receiving Nurses: Please use comment section below to note any information pertinent to the patient hand-off not included above. Information / Comments: heparin gtt @9.5 ml/hr PTT due at 1830 Report received from: Roslyn WYNNE
[2025-04-05] MEDS: Pantoprazole 40 MG VIAL IVP (17:53)
[2025-04-05] MEDS: Normal Saline Flush 10 ML SYR IVP ×2 (17:54→19:57)
[2025-04-05 18:54] LABS: PTT Activated 44.5 sec (20.6-30.2)
[2025-04-05 19:01] LABS: Troponin I 1034 ng/L (<or=76)
[2025-04-06 01:29] VITALS: BP 119/77; PULSE 65; RESP 15; TEMP 36.4; O2SAT 96
[2025-04-06 04:30] LABS: PTT Activated 70.6 sec (20.6-30.2)
[2025-04-06 05:39] VITALS: BP 127/81; PULSE 61; RESP 16; TEMP 36.3; O2SAT 99
[2025-04-06] MEDS: Heparin in 0.45% NaCl 25,000 UNIT/250 ML BAG 11 UNIT IVINF (05:51)
[2025-04-06 07:22] LABS: Abs Immature Grans 0.02 10^3/uL (0.0-0.06); HCT 41.1 % (40.0-50.0); HGB 13.5 g/dL (13.5-17.5); Immature Grans % 0.3 %; MCH 29.6 pg (27.0-33.0); MCHC 32.8 % (32.0-36.0); MCV 90 fL (80-95); MPV 11.0 fL (8.0-11.0); Platelet Count 259 10^3/uL (130-400); RBC 4.56 10^6/uL (4.36-5.78); RDW 14.6 % (11.8-14.1); RDW-SD 48.5 fL; WBC 6.34 10^3/uL (4.4-10.8)
--- NOTE | 2025-04-06 08:12 | PDOC.CMIN ---
Date of service: 04/06/25 Time of Service: 12:05 Care Management Initial Assmt Initial Assessment Reason for Hospitalization: NSTEMI, ACS Functional Status/Living Situation Patient Presentation: CM met with Austin while he was awake and sitting up in bed. He presented to the ED yesterday afternoon for evaluation of daily chest pain with shortness of breath and dizziness when performing exertional activities with onset for the past 2 months. Austin was pleasant and cooperative, willingly engaging in conversation. He shared that he has lived alone in [place] for the past 47 years and is independent at baseline, including driving. He is not affiliated with any community service organizations and states he does not feel a need for such services at this time. He states he regrets not seeking medical care sooner. 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 These activities would leave him exhausted and require him to rest. Austin is scheduled to be [facility] [place] [facility] [place] [place] today for continued cardiac workup and treatment. He denies having any advance directives and declined to complete them at this time. However, he was agreeable to completing Health Care Agent forms and identified his brother as his designated agent. He states his brother is his only support person. CM will continue to follow. 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 ) Instrumental Activities of Daily Living (ADLs): Independent Activities/Hobbies/SocialSupport: enjoys traveling, reports he visits many states annually. Medications Medication Management: No Issues/Barriers identified Advance Directives Advance Directives: Do you have an Advance Directive: N 01/20/13, 12:43 AD On File at [facility]: N 01/20/13, 12:43 Date Asked 04/05/25 04/05/25, 10:05 AD Date Reviewed COLST On File at [facility] COLST Date Scanned Code Status Resuscitation Status Full Code Portal Pt does not currently have a portal and education provided: Yes Insurance Coverage/Financial Issues Insurance: Medicare Part A & B - [id number] /[facility] - [id number] Care Team Visit Care Team Role Provider Type Ligia Johnson APRN MD [facility] STAFF PHYSICIAN Cristian Loera, YANCY Primary Care Provider NURSE PRACTITIONER VINCENT Sanders Emergency Provider [facility] NURSE Souleymane Garcia MD Admit Provider [facility] STAFF PHYSICIAN Attending Provider Discharge Potential Discharge Needs: PCP F/U Appt Anticipated Barriers to Discharge: Medical Status Patient/Family Education Needs: Review discharge instructions, discuss Ask Me Three Transportation: Private vehicle Plan: Anticipate Austin will be discharged home once medically ready. It is recommened he follow up with his community providers and continue per his plan of care. He will be transported home via private vehicle. [facility] will continue to follow. Social Determinants of Health Screening Social Determinants of health last assessed in clinic: 04/06/25 Will the Patient Participate in the Screening?: Yes Do you worry about having a steady place to live?: no Problems where you live: no known problems In the past 12 months, have you had to go without electric, gas, oil or water in your home?: no 1. Within the past 12 months, we worried whether our food would run out before we got money to buy more.: Never true 2. Within the past 12 months, the food we bought just didn't last and we didn't have money to get more.: Never true Has lack of transportation kept you from medical appointments or from doing things needed for daily living?: no Has anyone in your life made you feel unsafe or unsupported?: no How hard is it for you to pay for the very basics like food, housing, medical care, and heating? Would you say it is:: Not hard at all Do you want help finding or keeping work or a job?: I do not need or want help If for any reason you need help with day-to-day activities such as bathing, preparing meals, shopping, managing finances, etc., do you get the help you need?: I don?t need any help How often do you feel lonely or isolated from those around you?: Sometimes Do you speak a language other than Bulgarian at home?: No Health Related Social Needs Health related social needs: feeling lonely/isolated (Z60.8) Health related social needs details: pt states he only has it brother PFSH All Active Problems (Updated 04/05/25 @ 15:12 by VINCENT Sanders) Non-ST elevated myocardial infarction (Acute) NSTEMI (non-ST elevated myocardial infarction) (Acute) Diabetes mellitus type 2 in nonobese (Acute) Skin lesion (Acute) Left knee pain (Acute) Bilateral leg pain (Acute) Actinic keratoses (Acute) Essential hypertension (Acute) Family hx of prostate cancer (Acute) Hyperlipidemia (Acute) Type 2 diabetes mellitus without complication, without long-term current use of insulin (Acute 02/13/17) Undiagnosed cardiac murmurs (Acute) echo-mild focal aortic valve thickening Medical History Actinic keratosis History of alcoholism 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 Father Prostate cancer Brother Essential hypertension Hyperlipidemia Maternal Grandfather Heart disease Paternal Grandfather Stomach cancer Maternal Grandmother No problems noted. Paternal Grandmother No problems noted. Social History Smoking/Tobacco Use Status: Never Second Hand Exposure: Yes Smoking risk assessment performed?: Yes Alcohol Intake: former Drug use: Never Substance use type: does not use Caregiver/Support person: No Household members: none Housing: house Communication Needs: None Do you need help understanding health information?: Never Pets and animals: No Sexually active: No Do you think of yourself as: straight/heterosexual Current gender identity: male What is your relationship status?: How often do you talk on the phone with friends or family?: three or more times per week How often do you get together with friends or relatives?: twice per week How often do you attend oriental orthodox or mormonism services?: decline to answer Do you belong to any clubs or organized social groups?: no Panel score (0-1 are the most socially isolated patients): 1 What type of physical activity do you participate in: walking Duration: 45-60 minutes/day Frequency: 3-4 times per week Special jabari needs: No Seatbelt use: always Drive intox or ride w/intox grab driver: No Do you feel safe at home: Yes Do you feel safe in your relationship?: Yes Readmission Within the Past 30 Days Yes or No: No
[2025-04-06 08:31] LABS: ALT 19 U/L (16-63); AST 18 U/L (15-37); Albumin 3.7 g/dL (3.4-5.0); Alkaline Phosphatase 63 U/L (46-116); Anion Gap 7.0 mmol/L (3-11); BUN 18 mg/dL (7-18); Bilirubin, Total 0.5 mg/dL (0.2-1.0); CO2 29.0 mmol/L (21.0-32.0); Calcium 9.5 mg/dL (8.5-10.1); Chloride 105 mmol/L (98-107); Estimated GFR 70.44 (mL/min/1.73m2); Glucose 144 mg/dL (74-106); Potassium 4.8 mmol/L (3.5-5.1); Sodium 141 mmol/L (136-145); Total Protein 7.0 g/dL (6.4-8.2)
[2025-04-06 08:38] LABS: PTT Activated 73.9 sec (20.6-30.2)
[2025-04-06] MEDS: Normal Saline Flush 10 ML SYR IVP ×3 (08:41→22:48)
[2025-04-06] MEDS: Pantoprazole 40 MG VIAL IVP (08:41)
[2025-04-06] MEDS: Aspirin 81 MG CHEW PO (08:41)
--- NOTE | 2025-04-06 09:12 | DSE_ITS ---
Date of service: 04/06/25 Time of Service: 11:10 DS: Diagnosis Discharge Diagnosis (1) NSTEMI (non-ST elevated myocardial infarction): Status: Acute (2) Diabetes mellitus type 2 in nonobese: Status: Acute (3) Essential hypertension: Status: Acute (4) Hyperlipidemia: Status: Acute Discharge Plan Disposition Patient Disposition: Transfer-Acute Inpatient Care Specific Acute Inpt Facility: [facility] Condition: Stable Discharge Details Reason For Visit: NSTEMI, ACS Admit Date/Time: 04/05/25 13:15 Admit Provider: Souleymane Garcia Attending Provider: Souleymane Garcia Primary Care Provider: Cristian Loera Hospital Course Hospital Course: This 74 year-old male with a past medical history of hypelipeidemia,DM II, HNT, remote ETOH dependence presented to ED today by POV/ambulating after visiting urgent care for evaluation of daily left sided chest pain on exertion /activity with shortness of breath and dizziness for the past 2 months resolving at rest within 2-3 minutes. Denied diaphoresis and shortness of breath, radiation, syncope, nausea vomiting. Reported feeling pre-syncopal but subsided with rest, family history of most likely sudden from father and grand father. EKG negative for STEMI, troponin positive at 843 and 897, BUN/Cr ratio 20, [id number] blood work is otherwise without actianble items. ASA 324 mg given in ED and heparin drip initiated. [facility] cardiology consult resulting with Dr. Brasher accepting the patient and admission to [facility] pending bed avalaiblity in the morning. No recommendation for plavix emitted. Crestor and adily ASA 81 mg added to medicine regimen. Full code status confirmed Troponin maxed out at 1087, now trending down. The patient remained hemodynamically stable w/o chest pain overnight and will be transferred to [facility] cardiology today. Discussed with Dr. Mccloud Home Meds and New Rx's Prescriptions: No Action (DME) pen needle, diabetic [Comfort EZ Pen [place]] 31 gauge x 3/16 needle See Rx Instructions .Route Qty: 100 4RF Rx Instructions: Use as directed for insulin injection (DME) OneTouch Verio test strips Strip See Rx Instructions .Route Qty: 200 4RF Rx Instructions: Twice daily blood glucose testing fasting AM and before evening meal. (DME) blood-glucose meter [OneTouch Verio Flex Start] Kit See Rx Instructions .Route Qty: 1 0RF Rx Instructions: For twice daily BG testing with insulin use (DME) lancets [OneTouch Delica Plus Lancet] 30 gauge misc See Rx Instructions .Route Qty: 200 4RF Rx Instructions: Lancets for One Touch; twice daily. ibuprofen [Motrin IB] 200 MG tablet 400 mg PO BID PRN multivitamin [Once Daily] 1 EACH tablet 1 tab PO DAILY Qty: 90 0RF insulin glargine [Basaglar KwikPen U-100 Insulin] 100 unit/mL (3 mL) insulin pen 10 unit subcut BID Qty: 15 0RF Discharge Instructions Activity:: Activity as Tolerated Equipment/Supplies:: No Equipment Needed Diet:: NPO DS: Summary Time Spent with Patient providing and/or coordinating discharge services: Greater than 30 minutes Status at Discharge Functional status at discharge: independent ambulation Overall status at discharge: patient is not back to baseline Mental Status: mental status grossly normal Speech and Movement: speech and movement normal Mood: congruent mood Affect: normal affect Quality:SDOH Health Related Social Needs: Health related social needs lonely/isolated Health related social needs details pt states he only has it brother Health related social needs details: pt states he only has it brother Exam Narrative Exam Narrative: 74 yo looking of stated age, alert and oriented X4, neurologically intact, clear lungs, S1, S2 regular, + cardiac murmur, abdomen is non-distended, soft and non- tender, no CVA tenderness, moves all 4 ext. Psych Mental Status: mental status grossly normal Speech and Movement: speech and movement normal Mood: congruent mood Affect: normal affect DS: Data Vitals/I&O Vitals and I&O: Vital Signs Temperature 36.3 C L 04/06/25 05:39 Temperature Source Temporal Artery Scan 04/06/25 05:39 Pulse 61 04/06/25 05:39 Pulse Rhythm Regular 04/05/25 14:38 Pulse 76 04/05/25 14:01 Respiratory Rate 16 04/06/25 05:39 Respiratory Effort Normal, Non-Labored 04/05/25 14:38 Respiratory Depth Normal 04/05/25 14:38 Respiratory Pattern Normal 04/05/25 14:38 Blood Pressure 127/81 04/06/25 05:39 Blood Pressure Mean 96 04/06/25 05:39 Blood Pressure Position Sitting 04/05/25 10:22 Pulse Oximetry 99 04/06/25 05:39 Oxygen Delivery Method Room Air 04/06/25 05:39 Oxygen Flow Rate 0 04/06/25 05:39 Pain Level 0 04/06/25 05:39 Intake & Output 04/05/25 04/05/25 04/06/25 11:59 23:59 11:59 Intake Total 860 / 860 78.1 / 78.1 Balance 860 / 860 78.1 / 78.1 Weight 78.018 kg 74.9 kg Intake: IV 180 / 180 78.1 / 78.1 Oral 680 / 680 Other: Urine Appearance Clear Comment voiding independently Patient voids independently Stool Size Moderate Stool Characteristics Formed Brown Data Completed and Pending Labs on day of discharge: Labs from last 24 hours 04/06/25 04/06/25 04/06/25 07:58 06:20 01:26 WBC 6.34 RBC 4.56 Hgb 13.5 Hct 41.1 MCV 90 MCH 29.6 MCHC 32.8 RDW 14.6 H Plt Count 259 MPV 11.0 Immature Gran % 0.3 Neutrophils % 63.3 Lymphocytes % 22.4 Monocytes % 8.4 Eosinophils % 4.7 Basophils % 0.9 Nucleated RBC % 0.0 Absolute Neutrophils 4.01 Absolute Lymphocytes 1.42 Absolute Monocytes 0.53 Absolute Eosinophils 0.30 Absolute Basophils 0.06 APTT 73.9 H 70.6 H D-Dimer Sodium 141 Potassium 4.8 Chloride 105 Carbon Dioxide 29.0 Anion Gap 7.0 BUN 18 Creatinine 1.1 Est GFR (CKD-EPI 2020) 70.44 Glucose 144 H Calcium 9.5 Total Bilirubin 0.5 AST 18 ALT 19 Alkaline Phosphatase 63 Troponin I NT-Pro-B Natriuret Pep Total Protein 7.0 Albumin 3.7 Lipase 04/05/25 04/05/25 04/05/25 18:30 13:30 11:30 WBC RBC Hgb Hct MCV MCH MCHC RDW Plt Count MPV Immature Gran % Neutrophils % Lymphocytes % Monocytes % Eosinophils % Basophils % Nucleated RBC % Absolute Neutrophils Absolute Lymphocytes Absolute Monocytes Absolute Eosinophils Absolute Basophils APTT 44.5 H D-Dimer Sodium Potassium Chloride Carbon Dioxide Anion Gap BUN Creatinine Est GFR (CKD-EPI 2020) Glucose Calcium Total Bilirubin AST ALT Alkaline Phosphatase Troponin I 1034 H* 1087 H* 897 H* NT-Pro-B Natriuret Pep Total Protein Albumin Lipase 04/05/25 10:35 WBC 6.82 RBC 4.62 Hgb 13.3 L Hct 41.1 MCV 89 MCH 28.8 MCHC 32.4 RDW 14.4 H Plt Count 265 MPV 10.3 Immature Gran % 0.3 Neutrophils % 68.9 Lymphocytes % 18.3 Monocytes % 8.7 Eosinophils % 2.8 Basophils % 1.0 Nucleated RBC % 0.0 Absolute Neutrophils 4.70 Absolute Lymphocytes 1.25 Absolute Monocytes 0.59 Absolute Eosinophils 0.19 Absolute Basophils 0.07 APTT 25.3 D-Dimer 466 Sodium 139 Potassium 4.5 Chloride 104 Carbon Dioxide 28.1 Anion Gap 6.9 BUN 20 H Creatinine 1.0 Est GFR (CKD-EPI 2020) 78.98 Glucose 129 H Calcium 9.0 Total Bilirubin 0.5 AST 22 ALT 19 Alkaline Phosphatase 64 Troponin I 843 H* NT-Pro-B Natriuret Pep 1383 H Total Protein 7.1 Albumin 3.7 Lipase 32 PFSH All Active Problems (Updated 04/05/25 @ 15:12 by VINCENT Sanders) Non-ST elevated myocardial infarction (Acute) NSTEMI (non-ST elevated myocardial infarction) (Acute) Diabetes mellitus type 2 in nonobese (Acute) Skin lesion (Acute) Left knee pain (Acute) Bilateral leg pain (Acute) Actinic keratoses (Acute) Essential hypertension (Acute) Family hx of prostate cancer (Acute) Hyperlipidemia (Acute) Type 2 diabetes mellitus without complication, without long-term current use of insulin (Acute 02/13/17) Undiagnosed cardiac murmurs (Acute) echo-mild focal aortic valve thickening Medical History Actinic keratosis History of alcoholism 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 Father Prostate cancer Brother Essential hypertension Hyperlipidemia Maternal Grandfather Heart disease Paternal Grandfather Stomach cancer Maternal Grandmother No problems noted. Paternal Grandmother No problems noted. Social History Smoking/Tobacco Use Status: Never Second Hand Exposure: Yes Smoking risk assessment performed?: Yes Alcohol Intake: former Drug use: Never Substance use type: does not use Caregiver/Support person: No Household members: none Housing: house Communication Needs: None Do you need help understanding health information?: Never Pets and animals: No Sexually active: No Do you think of yourself as: straight/heterosexual Current gender identity: male What is your relationship status?: How often do you talk on the phone with friends or family?: three or more times per week How often do you get together with friends or relatives?: twice per week How often do you attend baptism or yazdanism services?: decline to answer Do you belong to any clubs or organized social groups?: no Panel score (0-1 are the most socially isolated patients): 1 What type of physical activity do you participate in: walking Duration: 45-60 minutes/day Frequency: 3-4 times per week Special jabari needs: No Seatbelt use: always Drive intox or ride w/intox airport shuttle driver: No Do you feel safe at home: Yes Do you feel safe in your relationship?: Yes Time Spent with Patient Time Spent with Patient: >85 minutes Time was spent: preparing to see the patient(eg.review tests), obtaining and/or reviewing separately otained hiistory, ordering medications,tests, procedures, referring, communicating with other health care transitions manager, indepentently interpreting results, counseling the patient and care coordination
[2025-04-06 12:09] VITALS: BP 117/77; PULSE 62; RESP 16; TEMP 37; O2SAT 99
[2025-04-06 15:12] VITALS: BP 123/73; PULSE 61; RESP 16; TEMP 36.5; O2SAT 96
--- NOTE | 2025-04-06 17:19 | W.NUTRFU ---
Date of service: 04/06/25 Time of Service: 17:19 Nutrition Note NOTE: Brief review of chart for initial nutrition assessment - unable to visit with patient today due to time constraints. Eating well. no significant weight changes (wt change of >3kg over 24 hours without diureses indicates probable error) A1C 7.1 last month. Tolerating diet per nursing. Anticipate d/c later today. Screened at lower nutrition risk initially. Will be available for outpatient nutrition education as patient desires Time Spent in Nutritional Counseling and Treatment: 0
--- NOTE | 2025-04-06 17:59 | W.PM.PROGNOT ---
Date of Service Date of service: 04/06/25 Time of Service: 17:59 Assessment and Plan Assessment and plan (1) NSTEMI (non-ST elevated myocardial infarction): Status: Acute Assessment and plan: EKG negative for STEMI, repeat if ACS symptoms , D- dimer and C XR negative- no increase in chest pain intensity with cough, troponin 843/879/1087 pointing to NSTEMI continue heparin drip , ASA daily Troponin trending down PRN nitroglycerin chest pain [facility] transfer pending NPO at [facility] (2) Diabetes mellitus type 2 in nonobese: Status: Acute Assessment and plan: Ongoing gluc AC & HS with home dose of insulin bolus and SSI coverage labs in AM (3) Essential hypertension: Status: Acute Assessment and plan: Not on medicine at home - stable (4) Hyperlipidemia: Status: Acute Assessment and plan: Lipitor allergy - LE weakness ongoing crestor Lipid panel: T chol 258, LDL [address] Mccloud Subjective Subjective Patient reports: no new complaints, tolerating liquids well, tolerating a regular diet, voiding w/o difficulty and no bowel movement; denies diarrhea, nausea, vomiting, shortness of breath or fever Exam Narrative Exam Narrative: Alert and oriented X4, neurologically intact, clear lungs, S1, S2 regular, + cardiac murmur, abdomen is non-distended, soft and non-tender, no CVA tenderness, moves all 4 ext. Objective Last Vital Signs Temp 36.5 C 04/06/25 15:12 Pulse 61 04/06/25 15:12 Resp 16 04/06/25 15:12 BP 123/73 04/06/25 15:12 Pulse Ox 96 04/06/25 15:12 Laboratory Results - last 24 hr 04/05/25 04/06/25 04/06/25 18:30 01:26 06:20 WBC 6.34 RBC 4.56 Hgb 13.5 Hct 41.1 MCV 90 MCH 29.6 MCHC 32.8 RDW 14.6 H Plt Count 259 MPV 11.0 Immature Gran % 0.3 Neutrophils % 63.3 Lymphocytes % 22.4 Monocytes % 8.4 Eosinophils % 4.7 Basophils % 0.9 Nucleated RBC % 0.0 Absolute Neutrophils 4.01 Absolute Lymphocytes 1.42 Absolute Monocytes 0.53 Absolute Eosinophils 0.30 Absolute Basophils 0.06 APTT 44.5 H 70.6 H Sodium 141 Potassium 4.8 Chloride 105 Carbon Dioxide 29.0 Anion Gap 7.0 BUN 18 Creatinine 1.1 Est GFR (CKD-EPI 2020) 70.44 Glucose 144 H Calcium 9.5 Total Bilirubin 0.5 AST 18 ALT 19 Alkaline Phosphatase 63 Troponin I 1034 H* Total Protein 7.0 Albumin 3.7 04/06/25 07:58 WBC RBC Hgb Hct MCV MCH MCHC RDW Plt Count MPV Immature Gran % Neutrophils % Lymphocytes % Monocytes % Eosinophils % Basophils % Nucleated RBC % Absolute Neutrophils Absolute Lymphocytes Absolute Monocytes Absolute Eosinophils Absolute Basophils APTT 73.9 H Sodium Potassium Chloride Carbon Dioxide Anion Gap BUN Creatinine Est GFR (CKD-EPI 2020) Glucose Calcium Total Bilirubin AST ALT Alkaline Phosphatase Troponin I Total Protein Albumin Time Spent with Patient Time Spent with Patient: >50 minutes Time was spent: preparing to see the patient(eg.review tests), obtaining and/or reviewing separately otained hiistory, ordering medications,tests, procedures, referring, communicating with other health pediatric acute care unit nurse, indepentently interpreting results, counseling the patient and care coordination
[2025-04-06 19:30] VITALS: BP 115/64; PULSE 59; RESP 16; TEMP 36.9; O2SAT 96
--- NOTE | 2025-04-07 02:21 | NUR.NOTE ---
Nursing Note: This RN went on critical care transport of patient from [facility] to [facility] for NSTEMI, ACS. Departed [facility] 232, arrives to [facility] 0035. Pt had Heparin running at 1100 units/hr. Vital signs obtained every 30 minutes. Pt remained hemodynamically stable en route to facility. 2325: BP 137/73, HR 60, RR 20, SpO2 96 2355: BP 120/75, HR 59, RR 14, SpO2 96 0025: BP 133/80, HR 60, RR 14, SpO2 98 Report given to Sherrie Ulrich RN on arrival to floor.
== END 2025-04-06 23:15 | disposition short-term general hospital (02) | DRG 282 ==
LOC: ER 10:21 → MS 14:21
PROVIDERS: Family Medicine; Admitting Provider Hospitalist; Emergency Provider Physician Assistant; PCP Nurse Practitioner Family; Responsible Provider Nurse Practitioner Acute Care; Visit Provider Hospitalist
DX: I21.4 Non-ST elevation (NSTEMI) myocardial infarction (principal); I10 Essential (primary) hypertension; E11.9 Type 2 diabetes mellitus without complications; E78.2 Mixed hyperlipidemia; Z79.4 Long term (current) use of insulin; Z79.899 Other long term (current) drug therapy; D64.9 Anemia, unspecified; R42 Dizziness and giddiness; R06.02 Shortness of breath; I35.8 Other nonrheumatic aortic valve disorders; F10.21 Alcohol dependence, in remission
CPT/HCPCS: 00123; 36415; 80048; 80053; 83690; 93005; 96365; 96366; 99285; 71045; 83880; 84484; 85025; 85379; 85730; 93010; 99223; 99239; J1644; J1815; J2470

== ENCOUNTER 2025-05-30 12:35 | Outpatient (REF) | payer MEDICARE, BC, SELFPAY ==
--- NOTE | 2025-05-30 07:32 | SKI_PTH ---
PATIENT: Austin Galvez LOC: [facility] U#:[id number] AGE/SX: 74/M ROOM: RE05/30/[address]: Angelo Phipps MD : 1950 BED: DIS: 05/30/2025 SPEC #: [id number] RECD: 05/30/25 12:59 STATUS: DELORIS RETristan #: [id number] PURVI: 05/30/25 07:[address]: Angelo Phipps DEPT: Surgical Specimen RECD BY: Daphnie Barboza ENTERED: 05/30/25 13:00 SP TYPE: XUAN SUTHER[place] DR: Cristian Loera, YANCY Tissues: 1 - SKIN EXCISION WIDE Procedures: SKIN LEVEL 4 Comments: [id number]
== END 2025-05-30 12:36 | disposition home or self-care (01) ==
LOC: LBN 12:35
PROVIDERS: PCP Nurse Practitioner Family; Visit Provider Otolaryngology
DX: C44.91 Basal cell carcinoma of skin, unspecified (principal); L98.9 Disorder of the skin and subcutaneous tissue, unspecified
CPT/HCPCS: 88305; 88307